=== PATIENT | male | born 1930 | race Caucasian/White ===

== ENCOUNTER 2018-03-04 10:49 | Inpatient (IN) | payer MEDICARE ==
[~2018-03-04] VITALS: Ht 160 cm; Wt 68.0 kg
[~2018-03-04 10:49] MED LIST: ASCO500T9 PO; ASPI81TA31 PO; CALC-343 PO; CALC100067 PO; LEVO500T2 PO; Losartan Potassium PO; MAGN400C PO; METR500T PO; MOME13HF IH; POTA2TAB18 PO; RANI150T43 PO; SAXA1TBM2 PO; ZINC50TA2 PO
--- NOTE | 2018-03-04 10:57 | NUR ---
PT A/OX4, PRESENTS TO THE ER C/O C/P THAT STARTED THIS AM WHILE PT WAS LYING IN BED. C/P IS PROVOKED UPON INHALATION, DOES NOT RADIATE, 05/20, INTERMITTENT. PT DOES NOT APPEAR TO BE IN ANY APPARENT DISTRESS AT THIS TIME. VS WNL. ER MD AT BEDSIDE FOR MSE.
--- NOTE | 2018-03-04 11:00 | NUR ---
PT DENIES SOB, N/V/D, DIZZINESS, HEADACHE.
[2018-03-04] MEDS ORDERED: AMLO2.5T4 PO (11:04)
[2018-03-04] MEDS ORDERED: GINKO (11:04)
[2018-03-04] MEDS ORDERED: [UNRECOGNIZED DRUG - OTHER] (11:04)
[2018-03-04] MEDS ORDERED: IRBE300T19 PO (11:04)
[2018-03-04] MEDS ORDERED: VITAMIN C (11:04)
[2018-03-04] MEDS ORDERED: SITA1TAB2 PO (11:04)
[2018-03-04] MEDS ORDERED: ASPI-605 PO (11:04)
[2018-03-04] MEDS ORDERED: ASPIRIN 325 MG TABLET ONE (11:09)
[2018-03-04] MEDS ORDERED: ASPIRIN 325 MG TABLET PO ONE (11:15)
[2018-03-04 11:25] LABS: BASOPHILS # (AUTO) 0.1 K/uL (0.0-8.0); BASOPHILS % (AUTO) 1.4 % (0.0-2.0); EOSINOPHILS # (AUTO) 0.1 K/uL (0.0-0.7); EOSINOPHILS % (AUTO) 2.5 % (0.0-7.0); HEMATOCRIT 39.3 % (36.7-47.1); HEMOGLOBIN 13.5 g/dL (12.5-16.3); LYMPHOCYTES # (AUTO) 1.6 K/uL (20.0-40.0); LYMPHOCYTES % (AUTO) 38.7 % (20.5-51.5); MEAN CORPUSCULAR HEMOGLOBIN 30.9 uug (23.8-33.4); MEAN CORPUSCULAR HGB CONC 34 g/dL (32.5-36.3); MONOCYTES # (AUTO) 0.3 K/uL (2.0-10.0); MONOCYTES % (AUTO) 8.4 % (0.0-11.0); PLATELET COUNT (AUTO) 170 K/uL (152-348); RED BLOOD CELL COUNT(AUTO) 4.37 MIL/uL (4.06-5.63); WHITE BLOOD COUNT (AUTO) 4.1 K/uL (3.6-10.2)
[2018-03-04 11:30] LABS: CARBON DIOXIDE 28 mmol/L (21-32); CHLORIDE 102 mmol/L (98-107); GLUCOSE 193 mg/dL (74-106); POTASSIUM 3.7 mmol/L (3.5-5.1); UREA NITROGEN, BLOOD 16 mg/dL (7-18)
[2018-03-04 11:42] LABS: ALANINE AMINOTRANSFERASE 27 U/L (16-63); ALKALINE PHOSPHATASE 55 U/L (50-136); ASPARTATE AMINOTRANSFERASE 17 U/L (15-37); BILIRUBIN,DIRECT 0.1 mg/dL (0.0-0.2); BILIRUBIN,TOTAL 0.5 mg/dL (0.2-1.0)
--- NOTE | 2018-03-04 12:22 | NUR ---
ZO BRANDT AT BEDSIDE FOR PT UPDATE.
[2018-03-04] MEDS ORDERED: SWABABLE VALVE TRANSFER SET EA MC ONE (12:33)
[2018-03-04] MEDS ORDERED: IOHEXOL 350 100 ML INFUS..BTL ONE (12:33)
[2018-03-04] MEDS ORDERED: NORMAL SALINE FLUSH 10 ML DISP.SYRIN ONE (12:33)
[2018-03-04] MEDS ORDERED: IV NORMAL SALINE 250 ML IV ONE (12:33)
[2018-03-04 12:34] LABS: *BILIRUBIN,URIN NEGATIVE (NEGATIVE); *BLOOD, URINE 1+ (NEGATIVE); *CLARITY,URINE CLEAR (CLEAR); *COLOR,URINE YELLOW (YELLOW); *KETONES,URINE NEGATIVE (NEGATIVE); *UROBILINOGEN,URINE 0.2 E.U./dl (NORMAL); LEUKOCYTE ESTERASE ,URINE NEGATIVE (NEGATIVE); NITRITE, URINE NEGATIVE (NEGATIVE); UGLUCOSE NEGATIVE (NEGATIVE)
--- NOTE | 2018-03-04 12:35 | NUR ---
PT TAKEN TO RADIOLOGY FOR CTA.
[2018-03-04 12:40] LABS: BACTERIA,URINE FEW /HPF (NONE SEEN); RBC,URINE NONE SEEN /HPF (0-3); SQUAMOUS EPITHELIAL CELL,UR FEW /HPF (NONE SEEN); WBC,URINE 0-3 /HPF (0-3)
--- NOTE | 2018-03-04 12:51 | NUR ---
PT BACK IN ER FROM RADIOLOGY.
--- NOTE | 2018-03-04 13:02 | NUR ---
US TECH AT BEDSIDE.
--- NOTE | 2018-03-04 13:33 | NUR ---
PAGED EPIC FOR PANEL CALL - AWAITING CALLBACK FROM BR[facility] PETERS. ATTEMPT 1.
--- NOTE | 2018-03-04 13:45 | NUR ---
GAVE ADMITTING REPORT TO ARMIDA WILLIS.
--- NOTE | 2018-03-04 13:49 | NUR ---
Pt. admitted to TELE 227, under care of DALIA DOE NP. Belongs List completed
--- NOTE | 2018-03-04 14:15 | NUR ---
ADMITTED PATIENT FROM THE ER. DX: CHEST PAIN/ RULE OUT ACS. DAUGHTER IS AT BEDSIDE. PATIENT IS A/OX4. NO SIGNS OF ACUTE DISTRESS. NO COMPLAINTS OF SOB. HAD LITTLE CHEST PAIN. IV HEPLOCK ON THE RIGHT FA IS INTACT. ASSESSMENT DONE. SAFETY MEASURES INITIATED. WILL CONTINUE TO MONITOR.
[2018-03-04] MEDS ORDERED: MAG HYDROX/AL HYDROX/SIMETH 30 ML LIQUID UDC PO PRN (14:45)
[2018-03-04] MEDS ORDERED: MORPHINE SULFATE 2 MG/1 ML DISP.SYRIN IV PRN (14:45)
[2018-03-04] MEDS ORDERED: ACETAMINOPHEN 325 MG TABLET PO PRN (14:45)
[2018-03-04] MEDS ORDERED: ONDANSETRON 4 MG/2 ML VIAL IV PRN (14:45)
[2018-03-04] MEDS ORDERED: DOCUSATE SODIUM 100 MG CAPSULE PO PRN (14:45)
[2018-03-04 16:00] VITALS: BP_SYST 105; BP_SYST 162; BP_DIAS 65; BP_DIAS 74
[2018-03-04] MEDS ORDERED: CALCIUM CARBONATE 500 MG TAB.CHEW PO PRN (16:00)
[2018-03-04] MEDS ORDERED: LEVOFLOXACIN 500 MG TABLET PO SCH (16:00)
[2018-03-04] MEDS ORDERED: MORPHINE SULFATE 4 MG/1 ML DISP.SYRIN IV PRN (16:00)
--- NOTE | 2018-03-04 19:20 | NUR ---
Received patient in bed. Alert and verbally responsive. Able to make needs known. Daughter at bedside. No c/o pain and discomfort. No acute distress. No SOB. Kept clean and dry. IV site on HOWIE. Patent and intact. All needs attended to promptly. Call light within reach. Will continue to monitor.
[2018-03-04 20:00] VITALS: BP 160/72
[2018-03-04] MEDS ORDERED: SIMVASTATIN 20 MG TABLET PO SCH (21:00)
[2018-03-04] MEDS ORDERED: MAGNESIUM OXIDE 400 MG TABLET PO SCH (21:00)
[2018-03-04] MEDS ORDERED: Medication Not On Formulary EA (Magnesium Oxide (Magnesium) 500 MG) PO SCH (21:00)
[2018-03-04] MEDS: METRONIDAZOLE 500 MG TABLET PO SCH (21:10)
--- NOTE | 2018-03-04 21:22 | NUR ---
Patient noted with BP of 160/72 HR 62. Patient asymptomatic. No c/o of N/V or dizziness. Re-checked BP and it went down to 157/70 HR 55. Patient still asymptomatic and verbalizes that he feels fine. No c/o chest pain. RESEARCH SCIENTIST made aware with new orders for Clonidine 0.1mg x1. New orders noted and carried out. Will continue to monitor patient.
[2018-03-04] MEDS ORDERED: CLONIDINE HCL 0.1 MG TABLET PO ONE (21:30)
--- NOTE | 2018-03-04 23:44 | NUR ---
Patient BP is now 120/60 with HR: 71. No acute distress noted. No c/o pain and discomfort. All needs attended to promptly. Will continue to monitor.
[2018-03-05] VITALS: BP 120/60
[2018-03-05 04:00] VITALS: BP 109/61
[2018-03-05 05:25] LABS: BASOPHILS # (AUTO) 0.1 K/uL (0.0-8.0); BASOPHILS % (AUTO) 1.1 % (0.0-2.0); EOSINOPHILS # (AUTO) 0.1 K/uL (0.0-0.7); EOSINOPHILS % (AUTO) 2.8 % (0.0-7.0); HEMATOCRIT 36.3 % (36.7-47.1); HEMOGLOBIN 12.7 g/dL (12.5-16.3); LYMPHOCYTES # (AUTO) 2.2 K/uL (20.0-40.0); LYMPHOCYTES % (AUTO) 44.3 % (20.5-51.5); MEAN CORPUSCULAR HEMOGLOBIN 30.8 uug (23.8-33.4); MEAN CORPUSCULAR HGB CONC 35 g/dL (32.5-36.3); MONOCYTES # (AUTO) 0.5 K/uL (2.0-10.0); MONOCYTES % (AUTO) 9.6 % (0.0-11.0); NEUTROPHILS # (AUTO) 2.1 K/uL (1.8-8.9); NEUTROPHILS % (AUTO) 42.2 % (38.5-71.5); PLATELET COUNT (AUTO) 162 K/uL (152-348); RED BLOOD CELL COUNT(AUTO) 4.13 MIL/uL (4.06-5.63); WHITE BLOOD COUNT (AUTO) 5.1 K/uL (3.6-10.2)
[2018-03-05] MEDS: METRONIDAZOLE 500 MG TABLET PO SCH ×2 (05:41→15:08)
[2018-03-05 05:43] LABS: CARBON DIOXIDE 30 mmol/L (21-32); CHLORIDE 105 mmol/L (98-107); CHOLESTEROL 88 mg/dL (<200); CREATININE 1.2 mg/dL (0.6-1.3); GLUCOSE 139 mg/dL (74-106); HDL CHOLESTEROL 57 mg/dL (40-60); POTASSIUM 3.9 mmol/L (3.5-5.1); TRIGLYCERIDES 66 MG/DL (30-150); UREA NITROGEN, BLOOD 16 mg/dL (7-18)
--- NOTE | 2018-03-05 07:00 | NUR ---
Patient is A/O x3, no SOB or any distress, no chest pain at the moment. No pain and discomfort. IV site on HOWIE. Patent and intact. Safety reinforced. Call light within reach. treatment plan discussed Will continue to monitor and care out orders.
[2018-03-05] MEDS ORDERED: ASCORBIC ACID 500 MG TABLET PO SCH (09:00)
[2018-03-05] MEDS ORDERED: ASPIRIN 81 MG TAB.CHEW PO SCH (09:00)
[2018-03-05] MEDS ORDERED: POTASSIUM GLUCONATE 595 MG PO SCH (09:00)
[2018-03-05] MEDS ORDERED: LOSARTAN POTASSIUM 100 MG PO SCH (09:00)
[2018-03-05] MEDS ORDERED: CALCIUM CARBONATE 500 MG TABLET PO SCH (09:00)
[2018-03-05] MEDS ORDERED: ZINC SULFATE 220 MG CAPSULE PO SCH (09:00)
[2018-03-05] MEDS ORDERED: LOSARTAN POTASSIUM 50 MG TABLET PO SCH (09:00)
[2018-03-05] MEDS ORDERED: AMLODIPINE 2.5 MG TABLET PO SCH (09:00)
[2018-03-05] MEDS ORDERED: Medication Not On Formulary EA (Irbesartan (Avapro) 1 TAB) PO SCH (09:00)
[2018-03-05] MEDS ORDERED: Medication Not On Formulary EA (Zinc 50 MG) PO SCH (09:00)
[2018-03-05] MEDS ORDERED: FAMOTIDINE 20 MG TABLET PO SCH (09:00)
[2018-03-05] MEDS ORDERED: LEVOFLOXACIN 500 MG TABLET PO SCH (09:00)
[2018-03-05] MEDS ORDERED: DEXTROSE 50% 50 ML DISP.SYRIN IV PRN (10:45)
[2018-03-05] MEDS ORDERED: INSULIN REGULAR, HUMAN 300 UNIT/3 ML VIAL SQ PRN (10:45)
[2018-03-05] MEDS ORDERED: FLUTICASONE/VILANTEROL 1 EACH BLST.W.DEV INH SCH (11:00)
[2018-03-05] MEDS: BLOOD SUGAR DIAGNOSTIC 1 EACH STRIP VI SCH ×2 (12:30→16:36)
[2018-03-05 12:39] VITALS: BP 138/63
[2018-03-05] MEDS ORDERED: LEVOFLOXACIN 250 MG TABLET PO SCH (16:00)
[2018-03-05 16:05] VITALS: BP 141/64
--- NOTE | 2018-03-05 16:39 | NUR ---
PATIENT A/Ox3. NO SOB OR ANY DISTRESS, CLEARED TO BE DISCHARGE BY PILOT INSTRUCTOR AND CRITICAL CARE NURSE, NO CHEST PAIN THIS SHIFT, DISCHARGED PAPERS SIGNED AND TEACHING IS DONE, HARD COPY PROVIDED WITH ALL INFO, DAUGHTER IS THE ONE WHO IS DRIVING TO HOME. PATIENT WENT DOWN STAIRS WITH ALLA MEMBRENO
== END 2018-03-05 16:45 | disposition home or self-care (01) | DRG 206 ==
LOC: ER 10:49 → TELE 13:50 → MED 03-05 10:48
PROVIDERS: ADMIT Registered Nurse; ATTEND Registered Nurse
DX: M94.0 Chondrocostal junction syndrome [Tietze] (principal); I24.9 Acute ischemic heart disease, unspecified; K21.9 Gastro-esophageal reflux disease without esophagitis; E66.9 Obesity, unspecified; I10 Essential (primary) hypertension; Z66 Do not resuscitate; J45.909 Unspecified asthma, uncomplicated; Z68.26 Body mass index [BMI] 26.0-26.9, adult; Z87.01 Personal history of pneumonia (recurrent); Z87.891 Personal history of nicotine dependence; Z79.82 Long term (current) use of aspirin; E11.9 Type 2 diabetes mellitus without complications
CPT/HCPCS: 36415; 70030-TC; 71045; 71275; 83735; 84100; 84443; 85025; 85730; 92610; 93005; 93307; A4663; G0378; J1815; J3490; J7050; Q9967